=== PATIENT | male | born 1980 | race Caucasian/White ===

== ENCOUNTER → 2017-05-08 | Outpatient (CLI) | payer BC ==
--- NOTE | 2017-05-08 17:07 | CT ---
EXAMINATION TYPE: CT sinus wo con DATE OF EXAM: 05/08/2017 COMPARISON: NONE HISTORY: Cough and sinus drainage. CT DLP: 635.00 mGycm. Automated Exposure Control for Dose Reduction was Utilized. TECHNIQUE: CT scan of the sinuses is performed without contrast, axial images are obtained, coronal r eformatted images are also reviewed. FINDINGS: The paranasal sinuses including the frontal, ethmoid, sphenoid, and maxillary sinuses bila terally are well-aerated without abnormal opacification. The ostiomeatal complex is patent bilateral ly on the coronal images. Visualized portion of mastoid air cells show no abnormal opacification. The globes are intact bilate rally. IMPRESSION: The sinuses are clear and the ostiomeatal complex is patent bilaterally.
--- NOTE | 2017-05-08 17:08 | CT ---
EXAMINATION TYPE: CT chest w con DATE OF EXAM: 05/08/2017 COMPARISON: Chest x-ray 04/18/2017 HISTORY: Cough x [address] DLP: 609.00 mGycm Automated exposure control for dose reduction was used. CONTRAST: CT scan of the chest is performed with IV Contrast, patient injected with 100 mL of Omnipaque 300. FINDINGS: LUNGS: The lungs are grossly clear, there is no concerning parenchymal mass or nodule identified. T here is no pleural effusion or pneumothorax seen. The tracheobronchial tree is patent. MEDIASTINUM: There are no greater than 1 cm hilar or mediastinal lymph nodes. No pericardial effusi on is seen. AORTA: No additional significant abnormality is seen. OTHER: No additional significant abnormality is seen. IMPRESSION: Normal contrast enhanced chest CT
== END | disposition home or self-care (01) ==
LOC: RADCTMAIN 16:28
PROVIDERS: ATTEND Internal Medicine
DX: J32.0 Chronic maxillary sinusitis (principal); R05 Cough
CPT/HCPCS: 71260; 70486; Q9967

== ENCOUNTER 2017-10-25 13:13 | Emergency (ER) | payer BC ==
[2017-10-25 13:58] VITALS: RESP 20
--- NOTE | 2017-10-25 14:31 | XR ---
EXAMINATION TYPE: XR chest 2V DATE OF EXAM: 10/25/2017 COMPARISON: Chest CT May 08, 2017 HISTORY: Fever chills and cough. TECHNIQUE: Frontal and lateral views of the chest are obtained. FINDINGS: There is no focal air space opacity, pleural effusion, or pneumothorax seen. The cardiac silhouette size is within normal limits. The osseous structures are intact. IMPRESSION: No suspicious acute pulmonary process. No significant change from prior.
--- NOTE | 2017-10-25 14:45 | ED ---
General Adult HPI - General Chief complaint: Upper Respiratory Infection Stated complaint: Cough Time Seen by Provider: 10/25/17 13:55 Source: patient Mode of arrival: ambulatory Limitations: no limitations - History of Present Illness Initial comments: Patient 37-year-old male who presents emergency room today with a chief complaint of cough congestion over the last week. He does admit that he's had body aches with some chills. Patient does admit to some sputum production. He does admit that he had a chronic cough over the last 3 years. States followed up with a dryer and washer mechanic. Was told it was ALLERGIES. Also states that he sees an cnc mechanic. Patient denies any symptoms. Patient denies any recent shortness of breath, chest pain, back pain, abdominal pain, nausea or vomiting, numbness or tingling, headaches or visual changes, or any other complaints. - Related Data Home Medications Medication Instructions Recorded Confirmed Loratadine [Claritin] 10 mg PO HS 10/25/17 10/25/17 Montelukast [Singulair] 10 mg PO HS 10/25/17 10/25/17 Omalizumab [Xolair] 150 mg SQ Q14D 10/25/17 10/25/17 Allergies Allergy/AdvReac Type Severity Reaction Status Date / Time No Known Allergies Allergy Verified 10/25/17 14:11 Review of Systems ROS Statement: Those systems with pertinent positive or pertinent negative responses have been documented in the HPI. ROS Other: All systems not noted in ROS Statement are negative. Past Medical History Past Medical History: Asthma, Pneumonia History of Any Multi-Drug Resistant Organisms: None Reported Past Surgical History: No Surgical Hx Reported Past Psychological History: No Psychological Hx Reported Smoking Status: Never smoker Past Alcohol Use History: None Reported Past Drug Use History: None Reported General Exam - General Exam Comments Initial Comments: General: The patient is awake and alert, in no distress, and does not appear acutely ill. Eye: Pupils are equal, round and reactive to light, extra-ocular movements are intact. No nystagmus. There is normal conjunctiva bilaterally. No signs of icterus. Ears, nose, mouth and throat: There are moist mucous membranes and no oral lesions. Neck: The neck is supple, there is no tenderness or JVD. Cardiovascular: There is a regular rate and rhythm. No murmur, rub or gallop is appreciated. Respiratory: Lungs are clear to auscultation, respirations are non-labored, breath sounds are equal. No wheezes, stridor, rales, or rhonchi. Musculoskeletal: Normal ROM, no tenderness. Strength 5/5. Sensation intact. Pulses equal bilaterally 2+. Neurological: A&O x 3. CN II-XII intact, There are no obvious motor or sensory deficits. Coordination appears grossly intact. Speech is normal. Skin: Skin is warm and dry and no rashes or lesions are noted. Psychiatric: Cooperative, appropriate mood & affect, normal judgment. Limitations: no limitations Course Vital Signs 10/25/17 10/25/17 13:25 13:55 Temperature 99.3 F Pulse Rate 78 Respiratory 18 20 Rate Blood Pressure 129/83 O2 Sat by Pulse 98 Oximetry Medical Decision Making - Medical Decision Making Chest x-ray reviewed no evidence of pneumonia. Patient's influenza swab is positive for influenza B. Patient will be discharged home. He is out a treatment range for Tamiflu symptoms started week ago. Patient advised continue Tylenol/Motrin for pain and fever control. Advised to follow-up the family doctor. Advised return if symptoms increase or worsen. - Lab Data Lab Results 10/25/17 Range/Units 14:10 Influenza Type A RNA Not Detected (Not Detectd) Influenza Type B (PCR) Detected H (Not Detectd) Disposition Clinical Impression: Influenza B Disposition: HOME SELF-CARE Condition: Good Instructions: Influenza (ED) Additional Instructions: Please use medication as discussed. Please follow-up with family doctor in the next 2 days of symptoms have not improved. Please return to emergency room if the symptoms increase or worsen or for any other concerns. Referrals: Elvis Carson MD [Primary Care Provider] - 1-2 days Time of Disposition: 14:58
[2017-10-25 15:07] VITALS: BP 121/73; PULSE 88; TEMP 99
== END 2017-10-25 15:00 | disposition home or self-care (01) ==
LOC: EC 13:13
DX: J10.1 Influenza due to other identified influenza virus with other respiratory manifestations (principal); J45.909 Unspecified asthma, uncomplicated; Z79.899 Other long term (current) drug therapy; Z87.01 Personal history of pneumonia (recurrent)
CPT/HCPCS: 71020; 87502; 99283

== ENCOUNTER 2019-02-05 08:42 | Day surgery (SDC) | payer BC ==
[2019-02-03 11:53] VITALS: BMI 28.7
[~2019-02-05 08:42] MED LIST: LACTATED RINGERS 1,000 ML IV SCH; LIDOCAINE 1% 20 ML VIAL (10MG/ML) FOR IV START INTRADERMA PRN; MIDAZOLAM (PF) 2 MG/2 ML VIAL IV PRN
[2019-02-05 09:30] VITALS: TEMP 97.5
[2019-02-05] MEDS ORDERED: PROPOFOL 10 MG/ML 20 ML VIAL IV ONE (10:43)
[2019-02-05] MEDS ORDERED: LIDOCAINE 1% INJ 10MG/ML (20 ML MDV) ONE (10:43)
--- NOTE | 2019-02-05 11:09 | P.PCN ---
Date of Procedure: 02/05/19 Procedure(s) Performed: Procedure: Esophagogastroduodenoscopy and biopsy. Preoperative diagnosis: Dysphagia. Postoperative diagnosis: 1. Small sliding hiatal hernia with low-grade distal esophagitis. 2. Antral gastritis. 3. Multiple biopsies obtained from the duodenum, antrum and esophagus. Preparation sedation: Was provided by anesthesia. Brief clinical history: The patient is a 38-year-old male who is scheduled for this evaluation because of dysphagia of 2-3 years duration. Its intermittent, mostly to solid food. The patient has history of chronic cough of around 5 years duration and at some point he had a trial with PPI without help. He denies acid reflux symptoms or any weight loss or bleeding. He has multiple environmental and food ALLERGIES. Procedure: With the patient on his left lateral decubitus position and after informed consent and adequate sedation, I passed a Olympus-GIF H 190 video upper endoscope through the cricopharyngeus down the esophagus. The GE junction was around 41 cm from the incisors and there was a small sliding hiatal hernia and short distal esophageal erosion or 2 consistent with low-grade distal esophagitis but no strictures or definite corrugations or other suggestions of eosinophilic esophagitis endoscopically. The endoscope was then passed into the stomach which was insufflated with air and inspected in detail including the retroflex view in the cardia. There was some mottling and erythema in the antrum but no ulcers or erosions. Pyloric channel did not show any ulcers. Duodenal bulb showed minimal erythema, post bulbar area and descending duodenum appeared within normal limits. Because of his symptoms and endoscopic findings, I obtained biopsies from the duodenum, antrum and esophagus then the endoscope was withdrawn. The patient tolerated the procedure well. Plan: I summarized the findings to the patient. I would like to see him in follow-up and make further plans based on his course and biopsy results. I will keep you updated on his progress.
[2019-02-05 11:15] VITALS: RESP 16
[2019-02-05 11:26] VITALS: BP 131/86; PULSE 67
== END 2019-02-05 11:40 | disposition home or self-care (01) ==
LOC: ORWHC2ENDO 08:42
DX: K44.9 Diaphragmatic hernia without obstruction or gangrene (principal); K20.0 Eosinophilic esophagitis; K29.80 Duodenitis without bleeding; K31.9 Disease of stomach and duodenum, unspecified; K29.70 Gastritis, unspecified, without bleeding; J45.909 Unspecified asthma, uncomplicated; Z79.51 Long term (current) use of inhaled steroids; Z79.899 Other long term (current) drug therapy
CPT/HCPCS: 88305; 43239; J2001; J2704

== ENCOUNTER 2021-11-29 23:13 | Emergency (ER) | payer BC ==
[2021-11-29] MEDS ORDERED: SODIUM CHLORIDE 0.9% 1,000 ML IV ONE (23:40)
[2021-11-30 00:07] LABS: Basophils # (A) 0.1 k/uL (0-0.2); Basophils % (A) 1 %; Eosinophils # (A) 0.2 k/uL (0-0.7); Eosinophils % (A) 2 %; HCT 43.9 % (39.0-53.0); HGB 15.2 gm/dL (13.0-17.5); Lymphocytes # (A) 3.1 k/uL (1.0-4.8); Lymphocytes % (A) 32 %; MCH 31.2 pg (25.0-35.0); MCHC 34.6 g/dL (31.0-37.0); MCV 90.1 fL (80.0-100.0); Mean Platelet Volume 6.6; Monocytes # (A) 0.4 k/uL (0-1.0); Monocytes % (A) 4 %; Neutrophils # (A) 5.7 k/uL (1.3-7.7); Neutrophils % (A) 59 %; Platelet Count 205 k/uL (150-450); RBC 4.87 m/uL (4.30-5.90); RDW 13.3 % (11.5-15.5); WBC 9.7 k/uL (3.8-10.6)
--- NOTE | 2021-11-30 00:16 | ED ---
Wound/Laceration HPI - General Chief Complaint: Wound/Laceration Stated Complaint: Infection in Right Arm. Time Seen by Provider: 11/29/21 23:33 Source: patient, RN notes reviewed Mode of arrival: ambulatory - History of Present Illness Initial Comments: This is a pleasant 41-year-old male who presents to emergency department stating that he scraped his right wrist about 3 days ago on would from his front porch. Patient states that he now has noticed that there is redness bleeding from the abraded site up the volar aspect of his right forearm just past the elbow. Patient denies any lumps in his right axilla. Patient denies any other skin rashes or lesions. No other injuries. Patient has no history of immunosuppression. No diabetes. No fever or chills. No headache, no fever or chills, no changes in vision or hearing, no sore throat or difficulty with speech, no neck pain, no chest pain or shortness of breath, no abdominal pain, no nausea or vomiting, no changes in urination or bowel movements, no numbness or tingling, no extremity pain, no skin rashes or lesions. - Related Data Home Medications Medication Instructions Recorded Confirmed Loratadine [Claritin] 10 mg PO HS 10/25/17 02/03/19 Montelukast [Singulair] 10 mg PO HS 10/25/17 02/03/19 Allergies Allergy/AdvReac Type Severity Reaction Status Date / Time No Known Allergies Allergy Verified 02/03/19 11:40 Review of Systems ROS Statement: Those systems with pertinent positive or pertinent negative responses have been documented in the HPI. ROS Other: All systems not noted in ROS Statement are negative. Past Medical History Past Medical History: Asthma, Pneumonia Additional Past Medical History / Comment(s): Chronic cough History of Any Multi-Drug Resistant Organisms: None Reported Past Surgical History: No Surgical Hx Reported Additional Past Surgical History / Comment(s): Kamuela teeth Past Anesthesia/Blood Transfusion Reactions: No Reported Reaction Past Psychological History: No Psychological Hx Reported Smoking Status: Never smoker Past Alcohol Use History: Occasional Past Drug Use History: None Reported - Past Family History Mother Family Medical History: No Reported History General Exam General appearance: alert, in no apparent distress Head exam: Present: atraumatic, normocephalic, normal inspection Eye exam: Present: normal appearance, PERRL, EOMI. Absent: scleral icterus, conjunctival injection, periorbital swelling ENT exam: Present: normal exam, mucous membranes moist Neck exam: Present: normal inspection. Absent: tenderness, meningismus, lymphadenopathy Respiratory exam: Present: normal lung sounds bilaterally. Absent: respiratory distress, wheezes, rales, rhonchi, stridor Cardiovascular Exam: Present: regular rate, normal rhythm, normal heart sounds. Absent: systolic murmur, diastolic murmur, rubs, gallop, clicks GI/Abdominal exam: Present: soft, normal bowel sounds. Absent: distended, tenderness, guarding, rebound, rigid Extremities exam: Present: normal inspection, full ROM, normal capillary refill. Absent: tenderness, pedal edema, joint swelling, calf tenderness Back exam: Present: full ROM Neurological exam: Present: alert, oriented X3, CN II-XII intact Psychiatric exam: Present: normal affect, normal mood Skin exam: Present: warm, dry, rash, abrasion, other (Abrasion noted to the volar aspect of the right wrist with evidence of lymphangitis extending approximately just past the antecubital fossa on the right. No palpable cord. No axillary adenopathy. Pulses are 2+ out of 4. Capillary refill less than 2 seconds.) Course - Reevaluation(s) Reevaluation #1: 11/30/21 00:36 Medical record is reviewed Patient symptoms are unchanged. Patient is informed of results and questions answered Patient in no distress 11/30/21 00:36 Medical Decision Making - Medical Decision Making Patient presents to symptomology consistent with an abrasion and a secondary infection with lymphangitis just past the elbow on the right. Does not appear to be systemically ill. Patient was given cefazolin here. We will treat the patient with cephalexin 4 times a day. Patient has no history of resistant angelica. - Lab Data Result diagrams: 11/29/21 23:54 11/29/21 23:54 Lab Results 11/29/21 11/29/21 11/29/21 Range/Units 23:54 23:54 23:54 WBC 9.7 (3.8-10.6) k/uL RBC 4.87 (4.30-5.90) m/uL Hgb 15.2 (13.0-17.5) gm/dL Hct 43.9 (39.0-53.0) % MCV 90.1 (80.0-100.0) fL MCH 31.2 (25.0-35.0) pg MCHC 34.6 (31.0-37.0) g/dL RDW 13.3 (11.5-15.5) % Plt Count 205 (150-450) k/uL MPV 6.6 Neutrophils % 59 % Lymphocytes % 32 % Monocytes % 4 % Eosinophils % 2 % Basophils % 1 % Neutrophils # 5.7 (1.3-7.7) k/uL Lymphocytes # 3.1 (1.0-4.8) k/uL Monocytes # 0.4 (0-1.0) k/uL Eosinophils # 0.2 (0-0.7) k/uL Basophils # 0.1 (0-0.2) k/uL Sodium 136 L (137-145) mmol/L Potassium 4.0 (3.5-5.1) mmol/L Chloride 104 (98-107) mmol/L Carbon Dioxide 20 L (22-30) mmol/L Anion Gap 12 mmol/L BUN 13 (9-20) mg/dL Creatinine 0.99 (0.66-1.25) mg/dL Est GFR (CKD-EPI)AfAm >90 (>60 ml/min/1.73 sqM) Est GFR (CKD-EPI)NonAf >90 (>60 ml/min/1.73 sqM) Glucose 105 H (74-99) mg/dL Plasma Lactic Acid Myron 1.1 (0.7-2.0) mmol/L Calcium 9.5 (8.4-10.2) mg/dL Disposition Clinical Impression: Cellulitis of right upper extremity, Lymphangitis Disposition: HOME SELF-CARE Condition: Good Instructions (If sedation given, give patient instructions): Cellulitis (ED) Additional Instructions: Elevate the effected arm with possible. Apply warm compresses. Take antibiotics as directed. Call tomorrow morning to follow-up with your regular physician. Return to the ER immediately if any symptoms worsen. Is patient prescribed a controlled substance at d/c from ED?: No Referrals: Jayson Soto MD [Primary Care Provider] - 1-2 days Time of Disposition: 00:56
[2021-11-30] MEDS ORDERED: DIPH,PERTUS(ACELL)TETVAC-LF 0.5 ML VIAL IM ONE (00:18)
--- NOTE | 2021-11-30 00:28 | XR ---
EXAMINATION TYPE: XR forearm RT DATE OF EXAM: 11/30/2021 COMPARISON: NONE HISTORY: Injury. Pain. TECHNIQUE: 2 views FINDINGS: Radius and ulna appear intact. I see no fracture nor dislocation. Carpal bones are intact. IMPRESSION: Negative right forearm exam. No fracture.
[2021-11-30 00:32] LABS: African American GFR (CKD) >90 (>60 ml/min/1.73 sqM); Anion Gap 12 mmol/L; Blood Urea Nitrogen 13 mg/dL (9-20); Calcium 9.5 mg/dL (8.4-10.2); Carbon Dioxide 20 mmol/L (22-30); Chloride 104 mmol/L (98-107); Glucose 105 mg/dL (74-99); Non-African American GFR(CKD) >90 (>60 ml/min/1.73 sqM); Sodium 136 mmol/L (137-145)
[2021-11-30] MEDS ORDERED: CEPHALEXIN 500MG STARTER PACK 4 CAP BTL PO STA (00:54)
[2021-11-30 01:11] VITALS: BP 147/107; PULSE 94; RESP 18; TEMP 98.2
== END 2021-11-30 01:13 | disposition home or self-care (01) ==
LOC: EC 23:13
DX: L03.113 Cellulitis of right upper limb (principal); S60.811A Abrasion of right wrist, initial encounter; J45.909 Unspecified asthma, uncomplicated; Z79.899 Other long term (current) drug therapy; W22.8XXA Striking against or struck by other objects, initial encounter
CPT/HCPCS: 36415; 80048; 83605; 85025; 87040; 90471; 90715; 96361; 96365; 99283